=== PATIENT | male | born 1985 | race African-American/Black ===

== ENCOUNTER 2020-11-06 15:47 | Emergency (ER) | payer OTHER ==
[~2020-11-06] VITALS: Ht 177.8 cm; Wt 113.4 kg
[2020-11-06 16:13] LABS: ABSOLUTE NEUTROPHILS 3.8 thou/uL (1.4-8.2); BASOPHILS 0.6 % (0.0-2.0); EOSINOPHILS 2.4 % (0.0-3.0); HEMATOCRIT 45.3 % (42.0-52.0); HEMOGLOBIN 15.2 gm/dL (14.0-18.0); LYMPHOCYTES 36.7 % (24.0-44.0); MCH 29.9 pg (26.0-34.0); MCHC 33.7 g/dL (28.0-37.0); MCV 88.9 fL (80.0-100.0); MONOCYTES 5.9 % (1.0-8.0); PLATELET COUNT 298 thou/uL (150-400); POLYS 54.4 % (36.0-66.0); RBC 5.09 mil/uL (4.50-6.00); RDW 12.9 % (10.5-14.5)
[2020-11-06 16:20] LABS: ANION GAP 10 mmol/L (7-16); BUN 20 mg/dL (7-18); CALCIUM 9.2 mg/dL (8.5-10.1); CHLORIDE 103 mmol/L (98-107); CO2 28 mmol/L (21-32); CREATININE 1.8 mg/dL (0.7-1.3); GLUCOSE 88 mg/dL (74-106); POTASSIUM 3.3 mmol/L (3.5-5.1); SODIUM 141 mmol/L (136-145)
[2020-11-06 16:30] LABS: ALBUMIN 4.2 g/dL (3.4-5.0); SGOT 39 U/L (15-37); SGPT 33 U/L (16-63); TOTAL BILIRUBIN 0.8 mg/dL (0.2-1.0); TOTAL PROTEIN 8.3 g/dL (6.4-8.2); TROPONIN-I <0.06 ng/mL (<0.06)
[2020-11-06 18:35] VITALS: BP 124/59
--- NOTE | 2020-11-07 07:06 | EKG ---
[address] [address] [employer] [place] [address] ELECTROCARDIOGRAM REPORT Name: ALAINA ALVARENGA Room #: DEP Roberta#: [id number] Admission: 11/06/20 Attend Phys: Discharge: 11/06/20 Date of : 87 Report #: [id number] [facility] ED Test Date: 2020-11-06 Test Time: 16:04:40 Pat Name: ALAINA ESTRADA Department: Room: Gender: M Security Systems Specialist: BRIAN : 1985 Requested By: Kenan Bonner Order Number: [id number] MD: Thomas Ramey Measurements Intervals [place] Rate: 76 P: 50 NM: 137 QRS: 24 QRSD: 93 T: -52 QT: 431 QTc: 485 Interpretive Statements Sinus rhythm RSR' in V1 or V2, probably normal variant Abnormal T, consider ischemia, diffuse leads J Point elevation V1-2 No previous ECG available for comparison Electronically Signed On 11-07-2020 7:06:45 CDT by Thomas Ramey [email or web address] <ELECTRONICALLY SIGNED> By: Thomas Ramey MD, [facility] 11/07/20 0706 [id number] [id number] Thomas Ramey MD, FACC /EPI
--- NOTE | 2020-11-07 09:14 | EKG ---
[address] [place] [address] ELECTROCARDIOGRAM REPORT Name: ALAINA ALVARENGA Room #: DEP Roberta#: [id number] Admission: 11/06/20 Attend Phys: Discharge: 11/06/20 Date of : 87 Report #: [id number] [facility] ED Test Date: 2020-11-06 Test Time: 16:48:08 Pat Name: ALAINA ESTRADA Department: Room: Gender: Director Of [employer] Program: SARAH : 1985 Requested By: Kenan Bonner Order Number: [id number] MD: Julius Berry Measurements Intervals [place] Rate: 73 P: 35 IA: 135 QRS: 18 QRSD: 91 T: -43 QT: 430 QTc: 474 Interpretive Statements Sinus rhythm Abnormal T, consider ischemia, inferior and lateral Baseline wander in lead(s) V1 Compared to ECG 11/06/2020 16:04:40 No significant changes Electronically Signed On 11-07-2020 9:14:28 CDT by Julius Berry [email or web address] <ELECTRONICALLY SIGNED> By: Julius Berry MD, [facility] 11/07/20 0914 [id number] 47 Julius Berry MD, [facility] /EPI
== END 2020-11-06 18:35 | disposition home or self-care (01) ==
LOC: ER 15:47
PROVIDERS: Physician Assistant
DX: R42 Dizziness and giddiness (principal); R11.0 Nausea; I10 Essential (primary) hypertension

== ENCOUNTER 2021-02-06 10:10 | Emergency (ER) | payer BC ==
[~2021-02-06] VITALS: Ht 177.8 cm; Wt 108.9 kg
[2021-02-06 10:11] VITALS: BP 175/105
[2021-02-06] MEDS ORDERED: LOPRESSOR50 MG PO (10:17)
[2021-02-06] MEDS ORDERED: XARELTO2.5 MG PO (10:18)
[2021-02-06] MEDS ORDERED: COZAAR 25 MG TA25 M1 PO (10:19)
[2021-02-06] MEDS ORDERED: XARELTO20 MG PO (10:19)
== END 2021-02-06 11:35 | disposition home or self-care (01) ==
LOC: ER 10:10
DX: M79.605 Pain in left leg (principal); M25.562 Pain in left knee; M79.652 Pain in left thigh; I10 Essential (primary) hypertension; I21.9 Acute myocardial infarction, unspecified; Z79.899 Other long term (current) drug therapy